=== PATIENT | female | born 1965 | race Caucasian/White ===

== ENCOUNTER 2021-02-04 21:46 | Observation (INO) | payer BC ==
[2021-02-04] MEDS ORDERED: SODIUM CHLORIDE 0.9% 500 ML 500 ML IV STA (23:07)
--- NOTE | 2021-02-04 23:12 | ED ---
Dizziness HPI - General Chief Complaint: Dizziness Stated Complaint: Light headed Time Seen by Provider: 02/04/21 22:09 Source: patient Mode of arrival: ambulatory Limitations: no limitations - History of Present Illness Initial Comments: This patient is a 55-year-old woman who presents to be evaluated for lightheadedness and vertigo that had come on earlier tonight. Patient states she had been driving when she felt lightheaded, so she pulled her vehicle to the side of the road. She then experienced some vertigo a spinning sensation. She states she had 2 previous episodes of this over the past week. She did not have any other associated symptoms. Following the episode she went to an urgent care where she had a 12-lead ECG performed, she had an Accu-Chek which showed a blood sugar approximately 100, and she had reportedly a urine screen performed. Patient then requested to be transferred here. MD Complaint: dizziness, lightheadedness -: hour(s) Timing: sudden onset Description: "room spinning", lightheadedness History of Same: Yes Severity: moderate Improves With: nothing Worsens With: nothing - Related Data Home Medications Medication Instructions Recorded Confirmed Levothyroxine Sodium [Synthroid] 150 mcg PO DAILY 02/04/21 02/04/21 Previous Rx's Medication Instructions Recorded Meclizine [Antivert] 12.5 mg PO TID PRN #10 tab 02/07/21 Ondansetron HCl [Zofran] 4 mg PO Q8H PRN #6 tab 02/07/21 Allergies Allergy/AdvReac Type Severity Reaction Status Date / Time Penicillins Allergy Anaphylaxis Verified 02/04/21 22:56 Review of Systems ROS Statement: Those systems with pertinent positive or pertinent negative responses have been documented in the HPI. ROS Other: All systems not noted in ROS Statement are negative. Constitutional: Denies: fever, chills Respiratory: Denies: cough, dyspnea Cardiovascular: Reports: syncope (Near syncope). Denies: chest pain, palpitations, edema Gastrointestinal: Denies: abdominal pain, nausea, vomiting, diarrhea, melena, hematochezia Genitourinary: Denies: dysuria, hematuria Musculoskeletal: Denies: back pain Skin: Denies: rash Neurological: Denies: headache, weakness, numbness Past Medical History History of Any Multi-Drug Resistant Organisms: None Reported Past Surgical History: Orthopedic Surgery, Tubal Ligation Additional Past Surgical History / Comment(s): septum surgery 2016, partial thyroidectomy Past Psychological History: No Psychological Hx Reported Smoking Status: Former smoker Past Alcohol Use History: Occasional Past Drug Use History: None Reported - Past Family History Father Family Medical History: Cancer Additional Family Medical History / Comment(s): Father of lung cancer. He was a smoker. Mother Family Medical History: Dementia Additional Family Medical History / Comment(s): Mother is . General Exam Limitations: no limitations General appearance: alert, in no apparent distress Head exam: Present: atraumatic, normocephalic Eye exam: Present: normal appearance, PERRL, EOMI. Absent: scleral icterus, conjunctival injection, nystagmus ENT exam: Present: mucous membranes dry Neck exam: Present: normal inspection Respiratory exam: Present: normal lung sounds bilaterally. Absent: respiratory distress, wheezes, rales, rhonchi, stridor Cardiovascular Exam: Present: regular rate, normal rhythm, normal heart sounds. Absent: systolic murmur, diastolic murmur, rubs, gallop GI/Abdominal exam: Present: soft. Absent: distended, tenderness, guarding, rebound, rigid, mass Extremities exam: Present: normal inspection, normal capillary refill. Absent: pedal edema, calf tenderness Back exam: Present: normal inspection. Absent: CVA tenderness (R), CVA tenderness (L) Neurological exam: Present: alert Skin exam: Present: warm, dry, intact, normal color. Absent: rash Course Vital Signs 02/04/21 02/05/21 02/05/21 21:49 00:07 01:25 Temperature 97.9 F Pulse Rate 74 55 L 74 Respiratory 18 16 18 Rate Blood Pressure 147/86 104/59 102/56 O2 Sat by Pulse 99 97 96 Oximetry 02/05/21 02/05/21 02/05/21 04:00 06:50 08:00 Temperature 98.2 F 98.0 F Pulse Rate 64 82 70 Respiratory 16 16 18 Rate Blood Pressure 111/72 100/78 129/79 O2 Sat by Pulse 96 97 100 Oximetry Medical Decision Making - Lab Data Result diagrams: 02/06/21 06:11 02/07/21 10:02 Lab Results 02/04/21 02/04/21 02/04/21 Range/Units 23:14 23:14 23:14 WBC 7.1 (3.8-10.6) k/uL RBC 4.47 (3.80-5.40) m/uL Hgb 13.6 (11.4-16.0) gm/dL Hct 39.4 (34.0-46.0) % MCV 88.2 (80.0-100.0) fL MCH 30.4 (25.0-35.0) pg MCHC 34.5 (31.0-37.0) g/dL RDW 12.6 (11.5-15.5) % Plt Count 232 (150-450) k/uL MPV 7.3 Neutrophils % 65 % Lymphocytes % 25 % Monocytes % 5 % Eosinophils % 3 % Basophils % 1 % Neutrophils # 4.6 (1.3-7.7) k/uL Lymphocytes # 1.8 (1.0-4.8) k/uL Monocytes # 0.3 (0-1.0) k/uL Eosinophils # 0.2 (0-0.7) k/uL Basophils # 0.1 (0-0.2) k/uL Sodium 140 (137-145) mmol/L Potassium 3.9 (3.5-5.1) mmol/L Chloride 107 (98-107) mmol/L Carbon Dioxide 24 (22-30) mmol/L Anion Gap 9 mmol/L BUN 11 (7-17) mg/dL Creatinine 0.70 (0.52-1.04) mg/dL Est GFR (CKD-EPI)AfAm >90 (>60 ml/min/1.73 sqM) Est GFR (CKD-EPI)NonAf >90 (>60 ml/min/1.73 sqM) Glucose 131 H (74-99) mg/dL Plasma Lactic Acid [place] (0.7-2.0) mmol/L Calcium 8.9 (8.4-10.2) mg/dL Total Bilirubin 0.5 (0.2-1.3) mg/dL AST 36 (14-36) U/L ALT 34 (4-34) U/L Alkaline Phosphatase 46 (38-126) U/L Troponin I (0.000-0.034) ng/mL Total Protein 6.9 (6.3-8.2) g/dL Albumin 4.3 (3.5-5.0) g/dL Urine Color Light Yellow Urine Appearance Clear (Clear) Urine pH 5.5 (5.0-8.0) Ur Specific [place] 1.011 (1.001-1.035) Urine Protein Negative (Negative) Urine Glucose (UA) Negative (Negative) Urine Ketones Negative (Negative) Urine Blood Negative (Negative) Urine Nitrite Negative (Negative) Urine Bilirubin Negative (Negative) Urine Urobilinogen <2.0 (<2.0) mg/dL Ur Leukocyte Esterase Small H (Negative) Urine RBC <1 (0-5) /hpf Urine WBC 9 H (0-5) /hpf Urine WBC Clumps Rare H (None) /hpf Ur Squamous Epith Cells 2 (0-4) /hpf Urine Bacteria Rare H (None) /hpf Hyaline Casts 1 (0-2) /lpf Urine Mucus Rare H (None) /hpf 02/04/21 02/04/21 Range/Units 23:14 23:14 WBC (3.8-10.6) k/uL RBC (3.80-5.40) m/uL Hgb (11.4-16.0) gm/dL Hct (34.0-46.0) % MCV (80.0-100.0) fL MCH (25.0-35.0) pg MCHC (31.0-37.0) g/dL RDW (11.5-15.5) % Plt Count (150-450) k/uL MPV Neutrophils % % Lymphocytes % % Monocytes % % Eosinophils % % Basophils % % Neutrophils # (1.3-7.7) k/uL Lymphocytes # (1.0-4.8) k/uL Monocytes # (0-1.0) k/uL Eosinophils # (0-0.7) k/uL Basophils # (0-0.2) k/uL Sodium (137-145) mmol/L Potassium (3.5-5.1) mmol/L Chloride (98-107) mmol/L Carbon Dioxide (22-30) mmol/L Anion Gap mmol/L BUN (7-17) mg/dL Creatinine (0.52-1.04) mg/dL Est GFR (CKD-EPI)AfAm (>60 ml/min/1.73 sqM) Est GFR (CKD-EPI)NonAf (>60 ml/min/1.73 sqM) Glucose (74-99) mg/dL Plasma Lactic Acid [place] 1.9 (0.7-2.0) mmol/L Calcium (8.4-10.2) mg/dL Total Bilirubin (0.2-1.3) mg/dL AST (14-36) U/L ALT (4-34) U/L Alkaline Phosphatase (38-126) U/L Troponin I <0.012 (0.000-0.034) ng/mL Total Protein (6.3-8.2) g/dL Albumin (3.5-5.0) g/dL Urine Color Urine Appearance (Clear) Urine pH (5.0-8.0) Ur Specific [place] (1.001-1.035) Urine Protein (Negative) Urine Glucose (UA) (Negative) Urine Ketones (Negative) Urine Blood (Negative) Urine Nitrite (Negative) Urine Bilirubin (Negative) Urine Urobilinogen (<2.0) mg/dL Ur Leukocyte Esterase (Negative) Urine RBC (0-5) /hpf Urine WBC (0-5) /hpf Urine WBC Clumps (None) /hpf Ur Squamous Epith Cells (0-4) /hpf Urine Bacteria (None) /hpf Hyaline Casts (0-2) /lpf Urine Mucus (None) /hpf Disposition Clinical Impression: Near syncope, Vertigo Disposition: ADMITTED IP TO THIS HOSP Condition: Fair
[2021-02-04 23:36] LABS: Basophils # (A) 0.1 k/uL (0-0.2); Basophils % (A) 1 %; Eosinophils # (A) 0.2 k/uL (0-0.7); Eosinophils % (A) 3 %; HCT 39.4 % (34.0-46.0); HGB 13.6 gm/dL (11.4-16.0); Lymphocytes # (A) 1.8 k/uL (1.0-4.8); Lymphocytes % (A) 25 %; MCH 30.4 pg (25.0-35.0); MCHC 34.5 g/dL (31.0-37.0); MCV 88.2 fL (80.0-100.0); Mean Platelet Volume 7.3; Monocytes # (A) 0.3 k/uL (0-1.0); Monocytes % (A) 5 %; Neutrophils # (A) 4.6 k/uL (1.3-7.7); Neutrophils % (A) 65 %; Platelet Count 232 k/uL (150-450); RBC 4.47 m/uL (3.80-5.40); RDW 12.6 % (11.5-15.5); WBC 7.1 k/uL (3.8-10.6)
--- NOTE | 2021-02-04 23:47 | XR ---
EXAMINATION TYPE: XR chest 1V portable DATE OF EXAM: 02/04/2021 COMPARISON: NONE HISTORY: Syncope TECHNIQUE: Single view FINDINGS: There is no heart failure nor confluent pneumonic infiltrate. Costophrenic angles are clear . Exam limited by patient's size. Bony thorax appears intact. IMPRESSION: No active cardiopulmonary disease. Normal heart.
[2021-02-04 23:49] LABS: ALT 34 U/L (4-34); AST 36 U/L (14-36); African American GFR (CKD) >90 (>60 ml/min/1.73 sqM); Albumin 4.3 g/dL (3.5-5.0); Alkaline Phosphatase 46 U/L (38-126); Anion Gap 9 mmol/L; Blood Urea Nitrogen 11 mg/dL (7-17); Calcium 8.9 mg/dL (8.4-10.2); Carbon Dioxide 24 mmol/L (22-30); Chloride 107 mmol/L (98-107); Glucose 131 mg/dL (74-99); Non-African American GFR(CKD) >90 (>60 ml/min/1.73 sqM); Sodium 140 mmol/L (137-145); Total Bilirubin 0.5 mg/dL (0.2-1.3); Total Protein 6.9 g/dL (6.3-8.2)
[2021-02-04 23:50] LABS: Potassium 3.9 mmol/L (3.5-5.1)
[2021-02-05 00:08] LABS: Appearance,Urine Clear (Clear); Bacteria,Urine Rare /hpf; Bilirubin,Urine Negative (Negative); Blood,Urine Negative (Negative); Color,Urine Light Yellow; Glucose,Urine (UA) Negative (Negative); Hyaline Casts,Urine 1 /lpf (0-2); Ketones,Urine Negative (Negative); Leukocyte Esterase,Urine Small (Negative); Mucus,Urine Rare /hpf; Nitrite,Urine Negative (Negative); PH, Urine 5.5 (5.0-8.0); Protein,Urine Negative (Negative); RBC,Urine <1 /hpf (0-5); Specific Gravity,Urine 1.011 (1.001-1.035); Squamous Epithelial Cell,Urine 2 /hpf (0-4); Urobilinogen,Urine <2.0 mg/dL (<2.0); WBC,Urine 9 /hpf (0-5)
[2021-02-05] MEDS ORDERED: NITROGLYCERIN SL TABS 0.4 MG TAB SUBLINGUAL PRN (01:25)
[2021-02-05] MEDS: SODIUM CHLORIDE 0.9% 1,000 ML IV SCH ×3 (01:30→20:06)
[2021-02-05] MEDS: LEVOTHYROXINE 75 MCG TAB PO SCH (06:53)
[2021-02-05] MEDS: FAMOTIDINE 20 MG/2 ML VIAL IV SCH ×2 (08:19→20:06)
[2021-02-05] MEDS: HEPARIN SODIUM,PORCINE/PF 5,000 UNIT/0.5 ML SYRINGE SQ SCH ×2 (08:19→20:06)
--- NOTE | 2021-02-05 08:22 | P.HPIM ---
History of Present Illness This is a pleasant 55 years old female with no significant past medical history. She is on levothyroxine for hypothyroidism. Presents because of recurrent nausea and lightheadedness. patient states that last Thursday she was doing her laundry and she felt lightheadedness which lasted about 4-5 minutes. And last Thursday she was sedated with the forefoot of the instrument 1 also felt lightheadedness and nausea that lasted about 5 minutes; and yesterday she had another episode of lightheadedness and nausea and felt the room was spinning and lasted for about 10 minutes. Today she has only mild headache, no dizziness. No weakness or numbness or blurred vision or slurred speech. she denies chest pain or abdominal pain or dyspnea. No fever. Patient states that recently she had menstrual bleeding for about 2 weeks, she wanted to see a porcelain slusher with ultrasound showed ovarian cyst. No more bleeding per Vagina Vitals are stable, blood pressure is 100/78 This morning. Labs show an unremarkable CBC, BMP, liver enzymes. Troponins 2 are negative with less than 0.012. Urine analysis is not suspicious of infection. Meyers virus not detected. EKG showed normal sinus rhythm at [address]-T changes. QTC is 457. chest x-ray: No acute process per radiologist. In the emergency room patient was given 500 bolus of normal saline and started at 100 mL per hour. Also she was started on aspirin. Review of Systems CONSTITUTIONAL: No fever, no malaise, no fatigue. HEENT: No recent visual problems or hearing problems. Denied any sore throat. CARDIOVASCULAR: No orthopnea, PND, no palpitations, no syncope. PULMONARY: No shortness of breath, no cough, no hemoptysis. GASTROINTESTINAL: No diarrhea, no nausea, no vomiting, no abdominal pain. Normoactive bowel sounds. NEUROLOGICAL: No headaches, no weakness, no numbness. HEMATOLOGICAL: Denies any bleeding or petechiae. GENITOURINARY: Denies any burning micturition, frequency, or urgency. MUSCULOSKELETAL/RHEUMATOLOGICAL: Denies any joint pain, swelling, or any muscle pain. ENDOCRINE: Denies any polyuria or polydipsia. Past Medical History History of Any Multi-Drug Resistant Organisms: None Reported Past Surgical History: Orthopedic Surgery, Tubal Ligation Additional Past Surgical History / Comment(s): septum surgery 2016, partial thyroidectomy Past Psychological History: No Psychological Hx Reported Smoking Status: Former smoker Past Alcohol Use History: Occasional Past Drug Use History: None Reported Medications and Allergies Home Medications Medication Instructions Recorded Confirmed Type Levothyroxine Sodium [Synthroid] 150 mcg PO DAILY 02/04/21 02/04/21 History Allergies Allergy/AdvReac Type Severity Reaction Status Date / Time Penicillins Allergy Anaphylaxis Verified 02/04/21 22:56 Physical Exam Vitals: Vital Signs Temp Pulse Resp BP Pulse Ox 02/05/21 04:00 98.2 F 64 16 111/72 96 02/05/21 01:25 74 18 102/56 96 02/05/21 00:07 55 L 16 104/59 97 02/04/21 21:49 97.9 F 74 18 147/86 99 Intake and Output 02/04/21 02/05/21 02/05/21 22:59 06:59 14:59 Other: Weight 97.976 kg GENERAL: The patient is alert and oriented x3, not in any acute distress. Well developed, well nourished. HEENT: Pupils are round and equally reacting to light. EOMI. No scleral icterus. No conjunctival pallor. Normocephalic, atraumatic. No pharyngeal erythema. No thyromegaly. CARDIOVASCULAR: S1 and S2 present. No murmurs, rubs, or gallops. PULMONARY: Chest is clear to auscultation, no wheezing or crackles. ABDOMEN: Soft, nontender, nondistended, normoactive bowel sounds. No palpable organomegaly. MUSCULOSKELETAL: No joint swelling or deformity. EXTREMITIES: No cyanosis, clubbing, or pedal edema. NEUROLOGICAL: Gross neurological examination did not reveal any focal deficits. SKIN: No rashes. No petechiae Results CBC & Chem 7: 02/04/21 23:14 02/04/21 23:14 Labs: Abnormal Lab Results - Last 24 Hours (Table) 02/04/21 02/04/21 Range/Units 23:14 23:14 Glucose 131 H (74-99) mg/dL Ur Leukocyte Esterase Small H (Negative) Urine WBC 9 H (0-5) /hpf Urine WBC Clumps Rare H (None) /hpf Urine Bacteria Rare H (None) /hpf Urine Mucus Rare H (None) /hpf Assessment and Plan Assessment: Acute episodic dizziness . Associated with possible vertigo and nausea Hypothyroidism Recent history of postmenopausal bleeding Plan: This is a pleasant 55 years old female who presents with dizziness. Continue with aspirin and normal saline. Monitor vitals. Check orthostatic vitals. Follow-up cardiology recommendation. We'll consult neurology service check hemoglobin A1c, TSH and vitamin B12 Follow-up with her porcelain slusher and PCP as an outpatient Labs and medication were reviewed.. Continue same treatment. Continue with symptomatic treatment. Resume home medication. Monitor lytes and vitals. DVT and GI prophylaxis. Further recommendations depends on the clinical course of the patient DVT prophylaxis: Subcutaneous heparin GI Prophylaxis: Pepcid
--- NOTE | 2021-02-05 09:05 | P.CRDCN ---
History of Present Illness History of present illness: HISTORY OF PRESENTING ILLNESS This is a pleasant 55-year-old female past medical history significant for hypothyroidism and vertigo. She does not follow with a paper sorter and counter.. We oquendo ve been asked to see in consultation for lightheadedness and near-syncope. Patient is seen and examined in the emergency Department, no acute distress. She states that on Thursday she started to have "band like" headache. This proceeded to turn into lightheadeness and sensations of the room spinning. This lasts for about 5 minutes. She said since Thursday this has progressively been getting worse and longer episodes. Yesterday she has another episode of lightheadedness, nausea, felt as if the room was spinning for about 10-15 minutes. She states she has had Vertigo before, but this was very different, in terms of the room spinning and lightheadedness. She denies chest pain, palpitations, shortness of breath. Patient denies history of Diabetes, Stroke, HTN, [place], Hyperlipidemia. She denies tobacco use. She occassionally drinks alcohol. Her medications include levothyroxine daily. DIAGNOSTICS EKG reveals sinus rhythm, heart rate 72, T wave inversion in lead V2, no significant ST-T wave abnormalities. No prior EKG Telemetry tracings at bedside, patient appears to be in sinus rhythm HR 70s Chest xray no active cardiopulmonary disease. Heart size appears normal Laboratory reviewed, CBC unremarkable, troponin negative 3, sodium 140, potassium 3.9, serum creatinine 0.70, BUN 11, COVID-19 negative REVIEW OF SYSTEMS At the time of my exam: CONSTITUTIONAL: Denies fever or chills. CARDIOVASCULAR: Denies chest pain, shortness of breath, orthopnea, PND or palpitations. RESPIRATORY: Denies cough. GASTROINTESTINAL: Denies abdominal pain, diarrhea, constipation, nausea or vomiting. MUSCULOSKELETAL: Denies myalgias. NEUROLOGIC: +headache, +lightheadness, +room spinning sensation, Denies weakness. ENDOCRINE: Denies fatigue, weight change, polydipsia or polyurina. GENITOURINARY: Denies burning, hematuria or urgency with micturation. HEMATOLOGIC: Denies history of anemia or bleeding. PHYSICAL EXAMINATION CONSTITUTIONAL: No apparent distress. HEENT: Head is normocephalic. Pupils are equal, round. Sclerae anicteric. Mucous membranes of the mouth are moist. No JVD. No carotid bruit. CHEST EXAMINATION: Lungs are clear to auscultation. No chest wall tenderness is noted on palpation or with deep breathing. HEART EXAMINATION: Regular rate and rhythm. S1, S2 heard. No murmurs, gallops or rub. ABDOMEN: Soft, nontender. Positive bowel sounds. EXTREMITIES: 2+ peripheral pulses, no lower extremity edema and no calf tenderness. SKIN: intact NEUROLOGIC EXAMINATION: Patient is awake, alert and oriented x3. ASSESSMENT Episodes of Dizziness, Lightheadedness, nausea Headache Hypothyroidism. PLAN Obtain 2D echocardiogram and doppler study to assess cardiac structure and f unction. Monitor the patient on telemetry for 24 hours to rule out arrhythmia Continue IV Fluids Recommend Neurology consult Nurse Practitioner note has been reviewed, I agree with a documented findings and plan of care. Patient was seen and examined. Past Medical History History of Any Multi-Drug Resistant Organisms: None Reported Past Surgical History: Orthopedic Surgery, Tubal Ligation Additional Past Surgical History / Comment(s): septum surgery 2016, partial thyroidectomy Past Psychological History: No Psychological Hx Reported Smoking Status: Former smoker Past Alcohol Use History: Occasional Past Drug Use History: None Reported Medications and Allergies Home Medications Medication Instructions Recorded Confirmed Type Levothyroxine Sodium [Synthroid] 150 mcg PO DAILY 02/04/21 02/04/21 History Allergies Allergy/AdvReac Type Severity Reaction Status Date / Time Penicillins Allergy Anaphylaxis Verified 02/04/21 22:56 Physical Exam Vitals: Vital Signs Temp Pulse Resp BP Pulse Ox 02/05/21 06:50 98.0 F 82 16 100/78 97 02/05/21 04:00 98.2 F 64 16 111/72 96 02/05/21 01:25 74 18 102/56 96 02/05/21 00:07 55 L 16 104/59 97 02/04/21 21:49 97.9 F 74 18 147/86 99 Intake and Output 02/04/21 02/05/21 02/05/21 22:59 06:59 14:59 Other: Weight 97.976 kg Results 02/04/21 23:14 02/04/21 23:14 Cardiac Enzymes 02/04/21 02/04/21 02/05/21 Range/Units 23:14 23:14 02:51 AST 36 (14-36) U/L Troponin I <0.012 <0.012 (0.000-0.034) ng/mL 02/05/21 Range/Units 06:37 AST (14-36) U/L Troponin I <0.012 (0.000-0.034) ng/mL CBC 02/04/21 Range/Units 23:14 WBC 7.1 (3.8-10.6) k/uL RBC 4.47 (3.80-5.40) m/uL Hgb 13.6 (11.4-16.0) gm/dL Hct 39.4 (34.0-46.0) % Plt Count 232 (150-450) k/uL Comprehensive Metabolic Panel 02/04/21 Range/Units 23:14 Sodium 140 (137-145) mmol/L Potassium 3.9 (3.5-5.1) mmol/L Chloride 107 (98-107) mmol/L Carbon Dioxide 24 (22-30) mmol/L BUN 11 (7-17) mg/dL Creatinine 0.70 (0.52-1.04) mg/dL Glucose 131 H (74-99) mg/dL Calcium 8.9 (8.4-10.2) mg/dL AST 36 (14-36) U/L ALT 34 (4-34) U/L Alkaline Phosphatase 46 (38-126) U/L Total Protein 6.9 (6.3-8.2) g/dL Albumin 4.3 (3.5-5.0) g/dL Current Medications Generic Name Dose Route Start Last Admin Trade Name Freq PRN Reason Stop Dose Admin Famotidine 20 mg 02/05/21 09:00 Famotidine 20 Mg/2 Ml Vial IV Q12HR ALEJANDRO Heparin Sodium (Porcine) 5,000 unit 02/05/21 09:00 Heparin Sodium,Porcine/Pf 5,000 Unit/0.5 Ml Syringe SQ Q12HR ALEJANDRO Sodium Chloride 1,000 mls @ 100 mls/hr 02/05/21 01:30 02/05/21 01:30 Saline 0.9% IV 100 mls/hr .Q10H ALEJANDRO Administration Levothyroxine Sodium 150 mcg 02/05/21 06:30 02/05/21 06:53 Levothyroxine 75 Mcg Tab PO 150 mcg DAILY@0630 ALEJANDRO Administration Nitroglycerin 0.4 mg 02/05/21 01:25 Nitroglycerin Sl Tabs 0.4 Mg Tab SUBLINGUAL Q5M PRN Chest Pain Intake and Output 02/04/21 02/05/21 02/05/21 22:59 06:59 14:59 Other: Weight 97.976 kg 02/04/21 23:14 02/04/21 23:14
[2021-02-05 10:31] LABS: T4, Free (Free Thyroxine) 1.86 ng/dL (0.78-2.19)
--- NOTE | 2021-02-05 11:55 | ECHOF ---
Referral Reason:lightheadedness, LV function MEASUREMENTS -------- HEIGHT: 167.6 cm WEIGHT: 98.0 kg BP: RVIDd: 3.0 cm (< 3.3) IVSd: 1.1 cm (0.6 - 1.1) LVIDd: 4.4 cm (3.9 - 5.3) LVPWd: 1.1 cm (0.6 - 1.1) IVSs: 1.7 cm LVIDs: 2.5 cm LVPWs: 1.6 cm LAESV Index (A-L): 23.84 ml/m Ao Diam: 2.8 cm (2.0 - 3.7) AV Cusp: 1.9 cm (1.5 - 2.6) LA Diam: 3.1 cm (2.7 - 3.8) MV EXCURSION: 11.453 mm (> 18.000) MV EF SLOPE: 98 mm/s (70 - 150) EPSS: 0.7 cm MV E Jairo: 0.94 m/s MV DecT: 187 ms MV A Jairo: 0.89 m/s MV E/A Ratio: 1.06 RAP: 5.00 mmHg RVSP: 10.93 mmHg FINDINGS -------- This was a technically good study. The left ventricular size is normal. Left ventricular wall thickness is normal. Overall left vent ricular systolic function is normal with, an EF between 55 - 60 %. The diastolic filling pattern is normal for the age of the patient {E/E'}. The right ventricle is normal in size. The left atrial size is normal. Normal LA size by volume 22+/-6 ml/m2. The right atrial size is normal. The aortic valve is trileaflet and appears structurally normal. The mitral valve is normal. There is trace mitral regurgitation. The tricuspid valve appears structurally normal. Trace tricuspid regurgitation present. Right av tricular systolic pressure is normal at < 35 mmHg. There is no pulmonic regurgitation present. The aortic root size is normal. IVC Not well visulized. There is no pericardial effusion. CONCLUSIONS -------- 1. The left ventricular size is normal. 2. Left ventricular wall thickness is normal. 3. Overall left ventricular systolic function is normal with, an EF between 55 - 60 %. 4. The diastolic filling pattern is normal for the age of the patient {E/E'} 5. There is trace mitral regurgitation. 6. Trace tricuspid regurgitation present. 7. There is no pericardial effusion. BRAN MIXER: Evi Velasco RDCS
[2021-02-05 17:10] LABS: Hemoglobin A1C 5.4 % (4.0-6.0)
[2021-02-06] MEDS: LEVOTHYROXINE 75 MCG TAB PO SCH (05:48)
[2021-02-06] MEDS: SODIUM CHLORIDE 0.9% 1,000 ML IV SCH ×2 (07:50→18:47)
[2021-02-06] MEDS: FAMOTIDINE 20 MG/2 ML VIAL IV SCH ×2 (07:50→19:47)
[2021-02-06] MEDS: HEPARIN SODIUM,PORCINE/PF 5,000 UNIT/0.5 ML SYRINGE SQ SCH ×2 (07:50→19:47)
--- NOTE | 2021-02-06 08:13 | P.CNNES ---
History of Present Illness Consult date: 02/05/21 Requesting physician: Henry E Sheet Reason for Consult: Dizziness and possible vertigo History of Present Illness: Patient is a 55-year-old female came to the hospital yesterday at 9:46 PM for evaluation of lightheadedness and vertigo. Patient has recurrent episodes of vertigo. Her most recent symptoms started on 01/26/2021 when she has returned back home from work, was loading clothes in the washing machine when she developed sudden onset of lightheadedness with vertigo and everything was spinning with nausea. It lasted for about 2-3 minutes. She resume that the vertigo occurred because she has not eaten for dinner. She got something to drink sat down and relax and the symptoms went away. She had another episode on 01/30/2021 when she has gone to a restaurant, ordered food and was just sitting, remembered that she has picked up the fork from the table when she developed lightheaded and nausea lasting for 2-3 minutes. 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 She couldn't focus. [place] nauseous and felt jittery inside. After this episode which lasted for 5-6 minutes, she felt very drained. He therefore decided to come to the ER. Vital signs on arrival blood pressure 147/86 pulse rate 74 temperature 97.9. 2- D echo showed normal left-ventricular size. Normal left-ventricular wall thickness. EF is 55-60%. Diastolic filling pressure is normal. EKG shows normal sinus rhythm, cannot rule out anterior infarct, age undetermined. Chest x-ray showed no active cardiopulmonary disease, normal heart. Her CBC, CMP is normal. UA is negative. Meyers virus PCR negative. Patient's B12 is 507, TSH is low <0.015, free T4 is normal 1.86. Hemoglobin A1c 5.4. At present patient feels fine. Patient states that the first episode ever happened was in October 2007. At that time she would have vertical flipping with the vertigo and would occur 4-5 times a week, lasting between 20 minutes to an hour. She had testing done, workup and nothing was found. These episodes occurred very frequently from October to June 2008, and then went away. She was fine until summer when she developed horizontal vertigo. She was at a local pharmacy [facility] fitting of vitamins when she developed this vertigo. She had her son, over and took her to home. The episode lasted for an hour. Denies any loss of vision, double vision. Patient does have hearing loss, and tinnitus in the right ear. No pain in the ear or pressure feeling. Patient states that she has seen an ENT specialist in 2012 but was for thyroid issues and TENS. At that time she was not complaining of any ear issues or vertigo. She has never seen ENT for vertigo. Patient denies tobacco. She smoked 1 pack per day for 10 years, quit 28 years ago. Drinks alcohol occasionally. Denies any hypertension or diabetes. Review of Systems Patient has tinnitus and hearing loss right ear. Patient states she has history of concussion in 2017. All other review of systems are completely reviewed and unremarkable except as mentioned in HPI. Past Medical History Past Medical History: GERD/Reflux, Hearing Disorder / Deafness, Osteoarthritis (OA), Pneumonia, Thyroid Disorder Additional Past Medical History / Comment(s): Hypothyroid (partial thyroidectomy d/t nodules), R ear tinnitis/[place], constipation, 2020 cologuard negative, UTI, arthritis in bilateral hands. History of Any Multi-Drug Resistant Organisms: None Reported Past Surgical History: Breast Surgery, Orthopedic Surgery, Tubal Ligation Additional Past Surgical History / Comment(s): Bilateral carpal tunnel releases, nasal/septum surgery, partial thyroidectomy, L breast benign lumpectomy. Past Anesthesia/Blood Transfusion Reactions: Motion Sickness Smoking Status: Former smoker - Past Family History Father Family Medical History: Cancer Additional Family Medical History / Comment(s): Father of lung cancer. He was a smoker. Mother Family Medical History: Dementia Additional Family Medical History / Comment(s): Mother is . Medications and Allergies Home Medications Medication Instructions Recorded Confirmed Type Levothyroxine Sodium [Synthroid] 150 mcg PO DAILY 02/04/21 02/04/21 History Allergies Allergy/AdvReac Type Severity Reaction Status Date / Time Penicillins Allergy Anaphylaxis Verified 02/04/21 22:56 Physical Examination - Vital Signs Vital Signs: Vital Signs Temp Pulse Resp BP Pulse Ox 02/05/21 08:00 70 18 129/79 100 02/05/21 06:50 98.0 F 82 16 100/78 97 02/05/21 04:00 98.2 F 64 16 111/72 96 02/05/21 01:25 74 18 102/56 96 02/05/21 00:07 55 L 16 104/59 97 02/04/21 21:49 97.9 F 74 18 147/86 99 Intake and Output 02/04/21 02/05/21 02/05/21 22:59 06:59 14:59 Other: Weight 97.976 kg 97.976 kg Patient is a middle aged female, very pleasant, in no acute distress. Patient is alert awake oriented to time place and person. Speech and language functions are normal. Attention, concentration and fund of knowledge is adequate. On cranial examination, pupils are equal, round and reacting to light, visual pillai are full on confrontation, with no neglect on double simultaneous stimulation, extraocular muscles are intact with no nystagmus. Face is symmetric, tongue protrudes to the midline. Palatal elevation and sensation normal, hearing is slightly decreased on the right, and shoulder shrug normal, facial sensation normal. Shoulder shrug normal. On muscle strength testing, there is no pronator drift and the strength is normal in arms and legs distally and proximally. Deep tendon reflexes are symmetric 1+ in the arms and legs. Sensory to touch is equal with no neglect. Cerebellar function showed no ataxia for [id number] testing. No dysdiadochokinesia. Tone and bulk of muscles normal. No ataxia for [id number] testing. Gait normal. On general examination, there is no carotid bruit or murmur, S1-S2 audible. Abdomen is soft nontender. Chest is clear. Peripheral pulses are present. No edema. Results - Laboratory Findings CBC and BMP: 02/04/21 23:14 02/04/21 23:14 Abnormal Lab Findings: Abnormal Labs 02/04/21 02/04/21 02/05/21 23:14 23:14 06:37 Glucose 131 H TSH <0.015 L Ur Leukocyte Esterase Small H Urine WBC 9 H Urine WBC Clumps Rare H Urine Bacteria Rare H Urine Mucus Rare H Assessment and Plan Assessment: * Recurrent episodes of vertigo lasting for 2-3 minutes. The vertigo does not occur on changing head or body position, occur spontaneously. Patient does have chronic right tinnitus and mild hearing loss on the right side. Rule out Mnire's disease. Rule out acoustic neuroma/schwannoma. * Hyperthyroidism, likely iatrogenic, needs adjustment of thyroid hormone. Would defer to IM. Plan: * Patient states that she never had MRI of the brain performed in the past. We will check MRI of the internal auditory canal with and without contrast to rule out schwannoma. If negative, I would recommend patient follow up with ENT specialist as an outpatient to rule out Mnire's disease. * Treatment of hyperthyroidism as per IM. * B12 is normal 507. Hemoglobin A1c 5.4.
[2021-02-06] MEDS ORDERED: ASPIRIN 325 MG TAB PO SCH (09:00)
[2021-02-06 09:57] LABS: Basophils # (A) 0.05 X 10*3/uL (0.00-0.10); Basophils % (A) 0.9 %; Eosinophils # (A) 0.19 X 10*3/uL (0.04-0.35); Eosinophils % (A) 3.3 %; HCT 39.6 % (37.2-46.3); HGB 12.7 g/dL (12.0-15.0); Lymphocytes % (A) 29.6 %; MCH 29.3 pg (27.0-32.0); MCHC 32.1 g/dL (32.0-37.0); MCV 91.2 fL (80.0-97.0); Mean Platelet Volume 10.1 fL (9.5-12.2); Monocytes # (A) 0.49 X 10*3/uL (0.20-1.00); Monocytes % (A) 8.5 %; Neutrophils % (A) 57.4 %; Platelet Count 227 X 10*3/uL (140-440); RBC 4.34 X 10*6/uL (4.10-5.20); RDW 12.5 % (11.5-14.5); WBC 5.75 X 10*3/uL (4.50-10.00)
[2021-02-06 10:34] LABS: African American GFR (CKD) 72.9 (60.0-200.0); Anion Gap 7.8 mmol/L (4.00-12.00); Calcium 8.5 mg/dL (8.7-10.3); Carbon Dioxide 26.2 mmol/L (21.6-31.8); Chol/HDL Ratio 4.89; LDL Cholesterol,Calculated 97.4 mg/dL (0.0-131.0); Non-African American GFR(CKD) 62.9 (60.0-200.0); Potassium 4.3 mmol/L (3.5-5.5); VLDL Calculation 38.6 mg/dL (5.00-40.00)
--- NOTE | 2021-02-06 14:49 | P.PN ---
Subjective HISTORY OF PRESENTING ILLNESS This is a pleasant 55-year-old female past medical history significant for hypothyroidism and vertigo. She does not follow with a end polisher.. We have been asked to see in consultation for lightheadedness and near-syncope. Patient is seen and examined in the emergency Department, no acute distress. She states that on Thursday she started to have "band like" headache. This proceeded to turn into lightheadeness and sensations of the room spinning. This lasts for about 5 minutes. She said since Thursday this has progressively been getting worse and longer episodes. Yesterday she has another episode of lightheadedness, nausea, felt as if the room was spinning for about 10-15 minutes. She states she has had Vertigo before, but this was very different, in terms of the room spinning and lightheadedness. She denies chest pain, palpitations, shortness of breath. Patient denies history of Diabetes, Stroke, HTN, MT, Hyperlipidemia. She denies tobacco use. She occassionally drinks alcohol. Her medications include levothyroxine daily. EKG reveals sinus rhythm, heart rate 72, T wave inversion in lead V2, no significant ST-T wave abnormalities. No prior EKG. Chest xray no active cardiopulmonary disease. Heart size appears normal 02/06/21: Patient seen and examined at bedside, no acute distress. Ambulating in room after a shower and doesn't have any complaints. Did have a couple episodes of lightheadedness/dizziness. Denies chest pain, shortness of breath, palpitations. Blood pressure 106/58, heart rate 65, afebrile, maintaining oxygen saturation is 97% on room air J reviewed data reviewed CBC and BMP are unremarkable. Triglycerides 193, cholesterol 171, LDL 97, HDL 35, TSH was low, free T4 within normal limits Telemetry tracings reviewed patient sinus mechanism heart rate 60 to 80s, no ectopy and no arrhythmia noted. Echocardiogram reviewed EF between 55-60%, trace mitral regurgitation, trace tricuspid regurgitation PHYSICAL EXAMINATION CONSTITUTIONAL: No apparent distress. HEENT: Neck Supple No JVD. No carotid bruit. CHEST EXAMINATION: Lungs are clear to auscultation. HEART EXAMINATION: Regular rate and rhythm. S1, S2 heard. No murmurs, gallops or rub. ABDOMEN: Soft, nontender. Positive bowel sounds. EXTREMITIES: 2+ peripheral pulses, no lower extremity edema and no calf tenderness. NEUROLOGIC EXAMINATION: Patient is awake, alert and oriented x3. ASSESSMENT Episodes of Dizziness, Lightheadedness, nausea - Do not believe patient's symptoms are from cardiac etiology Headache Hypothyroidism. PLAN Echocardiogram and telemetry reviewed with no acute findings. Patient symptoms not indicative of cardiac etiology after workup. From cardiology perspective, no further workup or changes. We will sign off at this time. Please reach out with any further questions or concerns Thank you kindly for this consultation Nurse Practitioner note has been reviewed, I agree with a documented findings and plan of care. Patient was seen and examined. Objective - Vital Signs Vital signs: Vital Signs Temp 98.3 F 02/06/21 07:00 Pulse 65 02/06/21 07:00 Resp 16 02/06/21 07:00 BP 106/58 02/06/21 07:00 Pulse Ox 97 02/06/21 07:00 Intake & Output 02/05/21 02/06/21 02/06/21 18:59 06:59 18:59 Weight 97.976 kg Other: Voiding Method Toilet Toilet Toilet # Voids 3 2 - Labs CBC & Chem 7: 02/06/21 06:11 02/06/21 06:11 Labs: Abnormal Lab Results - Last 24 Hours (Table) 02/06/21 Range/Units 06:11 Calcium 8.5 L (8.7-10.3) mg/dL Triglycerides 193.0 H (0.0-149.0) mg/dL HDL Cholesterol 35.0 L (40.0-60.0) mg/dL
--- NOTE | 2021-02-06 15:05 | MR ---
EXAMINATION TYPE: MR brain and iac wo/w con DATE OF EXAM: 02/06/2021 COMPARISON: None HISTORY: Recurrent vertigo TECHNIQUE: Multiplanar, multisequence images of the brain and brainstem is performed without and with IV contras t, utilizing 9 mL intravenous Gadavist . FINDINGS: Diffusion weighted images demonstrate no evidence of a recent infarct or other diffusion ab normality. There is no extra-axial fluid collection. Scattered white matter hyperintensities are pre sent on inversion recovery T2-weighted sequences, approximately 20-30 lesions, the largest in the rig ht frontal white matter measures 6 to 7 mm on axial image 21, lesions present in the subcortical and periventricular white matter. The ventricular system and cisternal spaces are normal in size and appe arance. The brain volume is age appropriate. At a level just cephalad to the left temporomandibular joint and possibly a communication with the juliette int there is a multiseptated lobular mass which is T2 intense, T1 hypointense with wall enhancement f ollowing contrast administration measuring approximately 11 mm in cephalad to caudal dimension by 18 mm in AP dimension by 11 mm in transverse dimension, there is likely erosion into the anterior aspect of the temporal bone. There is erosion of the middle cranial fossa posterior and inferior margin wit h intimal mass effect on the inferolateral margin of the left temporal lobe. Midline structures demonstrate normal morphology. The craniocervical junction appears within normal limits. The dural venous sinuses appear patent. The visualized sinuses are remarkable for mucoperios teal thickening in the maxillary sinuses, ethmoid air cells and the globes are intact. IMPRESSION: Findings could possibly represent a ganglion cyst with bone erosion in close proximity to the brain as described, possible mass effect. Nonspecific white matter demyelination, consider multi ple sclerosis in the appropriate clinical setting, migraine headaches, hypertension, vasculitis and L yme disease.
--- NOTE | 2021-02-06 20:40 | P.PN ---
Subjective This is a pleasant 55 years old female with no significant past medical history. She is on levothyroxine for hypothyroidism. Presents because of recurrent nausea and lightheadedness. patient states that last Thursday she was doing her laundry and she felt lightheadedness which lasted about 4-5 minutes. And last Thursday she was sedated with the forefoot of the instrument 1 also felt lightheadedness and nausea that lasted about 5 minutes; and yesterday she had another episode of lightheadedness and nausea and felt the room was spinning and lasted for about 10 minutes. Today she has only mild headache, no dizziness. No weakness or numbness or blurred vision or slurred speech. she denies chest pain or abdominal pain or dyspnea. No fever. Patient states that recently she had menstrual bleeding for about 2 weeks, she wanted to see a dip filler with ultrasound showed ovarian cyst. No more bleeding per Vagina Vitals are stable, blood pressure is 100/78 This morning. Labs show an unremarkable CBC, BMP, liver enzymes. Troponins 2 are negative with less than 0.012. Urine analysis is not suspicious of infection. Meyers virus not detected. EKG showed normal sinus rhythm at [address]-T changes. QTC is 457. chest x-ray: No acute process per radiologist. In the emergency room patient was given 500 bolus of normal saline and started at 100 mL per hour. Also she was started on aspirin. 02/06/2021 Patient has no more dizziness, no more nausea vomiting, no other complaint. She's feeling well, no postural symptoms. Echocardiogram showed ejection fraction of 55-60%, cardiology team signed off the case. Labs and vitals are stable with hemoglobin A1c is normal at 5.4%, TSH is normal 1.8 and B12 normal at 507. I discussed the case with neurology service, who recommended MRI of the brain: No infarct, multiseptate lobular mass close to her left temporo-mandibular joint with left temporal bone erosions, differential diagnosis ganglion cyst per radiologist. Patient also complaining of from chronic fullness and drinking and her here, both sides right more than left. We are consulting ENT service Review of Systems CONSTITUTIONAL: No fever, no malaise, no fatigue. HEENT: No recent visual problems or hearing problems. Denied any sore throat. CARDIOVASCULAR: No orthopnea, PND, no palpitations, no syncope. PULMONARY: No shortness of breath, no cough, no hemoptysis. GASTROINTESTINAL: No diarrhea, no nausea, no vomiting, no abdominal pain. Normoactive bowel sounds. NEUROLOGICAL: No headaches, no weakness, no numbness. HEMATOLOGICAL: Denies any bleeding or petechiae. Active Medications Generic Name Dose Route Start Last Admin Trade Name Freq PRN Reason Stop Dose Admin Famotidine 20 mg 02/05/21 09:00 02/06/21 19:47 Famotidine 20 Mg/2 Ml Vial IV 20 mg Q12HR ALEJANDRO Administration Heparin Sodium (Porcine) 5,000 unit 02/05/21 09:00 02/06/21 19:47 Heparin Sodium,Porcine/Pf 5,000 Unit/0.5 Ml Syringe SQ 5,000 unit Q12HR ALEJANDRO Administration Levothyroxine Sodium 150 mcg 02/05/21 06:30 02/06/21 05:48 Levothyroxine 75 Mcg Tab PO 150 mcg DAILY@0630 ALEJANDRO Administration Nitroglycerin 0.4 mg 02/05/21 01:25 Nitroglycerin Sl Tabs 0.4 Mg Tab SUBLINGUAL Q5M PRN Chest Pain Objective - Vital Signs Vital signs: Vital Signs Temp 98.7 F 02/06/21 18:48 Pulse 66 02/06/21 18:48 Resp 20 02/06/21 18:48 BP 112/63 02/06/21 18:48 Pulse Ox 98 02/06/21 18:48 Intake & Output 02/06/21 02/06/21 02/07/21 06:59 18:59 06:59 Intake Total 0 Balance 0 Intake: Intake, IV Titration 0 Amount Sodium Chloride 0.9% 1, 0 000 ml @ 100 mls/hr IV . Q10H [facility] Rx#:[id number] Other: Voiding Method Toilet Toilet # Voids 2 1 - Exam GENERAL: The patient is alert and oriented x3, not in any acute distress. Well developed, well nourished. HEENT: Pupils are round and equally reacting to light. EOMI. No scleral icterus. No conjunctival pallor. Normocephalic, atraumatic. No pharyngeal erythema. No thyromegaly. CARDIOVASCULAR: S1 and S2 present. No murmurs, rubs, or gallops. PULMONARY: Chest is clear to auscultation, no wheezing or crackles. ABDOMEN: Soft, nontender, nondistended, normoactive bowel sounds. No palpable organomegaly. MUSCULOSKELETAL: No joint swelling or deformity. EXTREMITIES: No cyanosis, clubbing, or pedal edema. NEUROLOGICAL: Gross neurological examination did not reveal any focal deficits. SKIN: No rashes. no petechiae. - Labs CBC & Chem 7: 02/06/21 06:11 02/06/21 06:11 Labs: Abnormal Lab Results - Last 24 Hours (Table) 02/06/21 Range/Units 06:11 Calcium 8.5 L (8.7-10.3) mg/dL Triglycerides 193.0 H (0.0-149.0) mg/dL HDL Cholesterol 35.0 L (40.0-60.0) mg/dL Assessment and Plan Assessment: 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 Associated with possible vertigo and nausea . Improved Hypothyroidism Recent history of postmenopausal bleeding Plan: This is a pleasant 55 years old female who presents with dizziness. Continue with aspirin and discontinue normal saline. Neurology service on the case Consult ENT for left TMJ and ear symptoms Follow-up with her dip filler and PCP as an outpatient Labs and medication were reviewed.. Continue same treatment. Continue with symptomatic treatment. Resume home medication. Monitor lytes and vitals. DVT and GI prophylaxis. Further recommendations depends on the clinical course of the patient DVT prophylaxis: Subcutaneous heparin GI Prophylaxis: Pepcid
[2021-02-07] MEDS: LEVOTHYROXINE 75 MCG TAB PO SCH (05:58)
[2021-02-07 07:49] VITALS: BP 135/76; PULSE 74; RESP 18; TEMP 97.5
[2021-02-07] MEDS: HEPARIN SODIUM,PORCINE/PF 5,000 UNIT/0.5 ML SYRINGE SQ SCH (08:17)
[2021-02-07] MEDS: FAMOTIDINE 20 MG/2 ML VIAL IV SCH (08:17)
--- NOTE | 2021-02-07 10:11 | P.PN ---
Subjective Progress Note Date: 02/06/21 Patient is feeling better. Patient had a mild headache, slight lightheadedness but no spinning. Telemetry monitoring showing sinus rhythm in the 50s with PVCs and some PACs. Objective - Vital Signs Vital signs: Vital Signs Temp 98.7 F 02/06/21 18:48 Pulse 66 02/06/21 18:48 Resp 20 02/06/21 18:48 BP 112/63 02/06/21 18:48 Pulse Ox 98 02/06/21 18:48 Intake & Output 02/06/21 02/06/21 02/07/21 06:59 18:59 06:59 Intake Total 0 Balance 0 Intake: Intake, IV Titration 0 Amount Sodium Chloride 0.9% 1, 0 000 ml @ 100 mls/hr IV . Q10H [facility] Rx#:[id number] Other: Voiding Method Toilet Toilet # Voids 2 1 - Exam Patient's mental status, speech and language functions are normal. Cranial nerves are significant for normal pupils, visual pillai and extraocular muscles with no nystagmus. Patient has significant hearing loss, severe on the right, mild on the left for finger rubbing. Face is symmetric and tongue protrudes to the midline. Muscle strength is normal. Reflexes are trace in the upper limbs, 1+ in the lower extremities. Sensations are equal. No ataxia. - Labs CBC & Chem 7: 02/06/21 06:11 02/06/21 06:11 Labs: Abnormal Lab Results - Last 24 Hours (Table) 02/06/21 Range/Units 06:11 Calcium 8.5 L (8.7-10.3) mg/dL Triglycerides 193.0 H (0.0-149.0) mg/dL HDL Cholesterol 35.0 L (40.0-60.0) mg/dL Assessment and Plan Assessment: * Recurrent episodes of vertigo lasting for 2-3 minutes. The vertigo does not occur on changing head or body position, occur spontaneously. Patient does have chronic right tinnitus and significant hearing loss on the right side. Rule out Mnire's disease. Rule out acoustic neuroma/schwannoma. * Hyperthyroidism, likely iatrogenic, needs adjustment of thyroid hormone. Would defer to IM. Plan: * Await MRI of the internal auditory canal with and without contrast to rule out schwannoma. If negative, I would recommend patient follow up with ENT specialist as an outpatient to rule out Mnire's disease. * Treatment of hyperthyroidism as per IM. * B12 is normal 507. Hemoglobin A1c 5.4.
[2021-02-07 10:32] LABS: African American GFR (CKD) >90 (>60 ml/min/1.73 sqM); Blood Urea Nitrogen 14 mg/dL (7-17); Non-African American GFR(CKD) 86 (>60 ml/min/1.73 sqM)
[2021-02-07] MEDS ORDERED: SODIUM CHLORIDE 0.9% 1,000 ML IV SCH (10:45)
--- NOTE | 2021-02-07 12:17 | CT ---
EXAMINATION TYPE: CT soft tissue neck w con DATE OF EXAM: 02/07/2021 COMPARISON: None HISTORY: Left sided neck mass marked by BB. Surgery to that region previously. CT DLP: 649 mGycm CONTRAST: CT scan of the neck is performed with IV Contrast, patient injected with 100 mL of Isovue M300. Contrast enhanced CT of the neck was performed from the skull base through the lung apices. No distinct mass at the site of clinical concern. AIRWAY: The supraglottic, glottic, and subglottic portions of the airway appear patent and free of mass. SALIVARY GLANDS: The submandibular and parotid glands are free of mass or inflammatory process. THYROID GLAND: No nodules or masses seen. LYMPH NODES: No adenopathy seen greater than 1cm. LUNG APICES: No nodule or mass is seen. OTHER: Vascular structures are patent. No significant degenerative change of the cervical spine. N o abscess seen. IMPRESSION: No distinct abnormality appreciated.
[2021-02-07] MEDS ORDERED: MECLIZINE 12.5 MG TAB PO PRN (13:33)
--- NOTE | 2021-02-07 15:36 | P.PN ---
Subjective Progress Note Date: 02/07/21 Patient is feeling better. No further episodes of vertigo. She had slight lightheadedness but no spinning. Objective - Vital Signs Vital signs: Vital Signs Temp 97.5 F L 02/07/21 07:00 Pulse 74 02/07/21 07:00 Resp 18 02/07/21 07:00 BP 135/76 02/07/21 07:00 Pulse Ox 96 02/07/21 07:00 Intake & Output 02/06/21 02/07/21 02/07/21 18:59 06:59 18:59 Intake Total 0 Balance 0 Intake: Intake, IV Titration 0 Amount Sodium Chloride 0.9% 1, 0 000 ml @ 100 mls/hr IV . Q10H [facility] Rx#:[id number] Other: Voiding Method Toilet Toilet # Voids 3 - Exam Patient's mental status, speech and language functions are normal. Cranial nerves are significant for normal pupils, visual pillai and extraocular muscles with no nystagmus. Patient has significant hearing loss, severe on the right, mild on the left for finger rubbing. Face is symmetric and tongue protrudes to the midline. Muscle strength is normal. Reflexes are trace in the upper limbs, 1+ in the lower extremities. Sensations are equal. No ataxia. - Labs CBC & Chem 7: 02/06/21 06:11 02/07/21 10:02 Assessment and Plan Assessment: * Recurrent episodes of vertigo lasting for 2-3 minutes. The vertigo does not occur on changing head or body position, occur spontaneously. Patient does have chronic right tinnitus and significant hearing loss on the right side. Rule out Mnire's disease. No evidence of acoustic neuroma/schwannoma on the MRI. * Hyperthyroidism, likely iatrogenic, needs adjustment of thyroid hormone. Would defer to IM. Plan: * MRI of the brain and IAC with and without contrast for performed. It revealed findings could possibly represent a ganglion cyst with bone erosion in the close proximity to the brain with possible mass effect. It is located just cephalad to the left tempor0-mandibular joint and possibly a communication with the joint. Nonspecific white matter demyelination, consider multiple sclerosis in the appropriate clinical setting, migraine headaches, hypertension, vasculitis and Lyme disease. * Patient also had computed tomography scan of the soft tissue of neck with contrast, which revealed no distinct abnormality appreciated. * Patient has an appointment with Dr. Pierce, ENT specialist as an outpatient on 02/20/2021 to rule out Mnire's disease. * We will check RPR, JUSTICE, Lyme titer. * Treatment of hyperthyroidism as per IM. * B12 is normal 507. Hemoglobin A1c 5.4. * Patient going home today. Addendum 02/10/2021: JUSTICE negative, Lyme and RPR also negative.
[2021-02-07] MEDS ORDERED: FAMOTIDINE 20 MG TAB PO SCH (21:00)
--- NOTE | 2021-02-08 00:11 | P.DS ---
Providers Date of admission: 02/07/21 09:29 Attending physician: Branden Rabago Consults: 02/05/21 01:25 Consult Physician Routine Consulting Provider: Ori Rivera Consult Reason/Comments: near syncope Do you want consulting provider notified?: Yes 02/05/21 08:19 Consult Physician Urgent Consulting Provider: Landon Payne Consult Reason/Comments: dizziness and possible vertigo Do you want consulting provider notified?: Yes 02/06/21 15:55 Consult Physician Urgent Consulting Provider: Alden Ramos Consult Reason/Comments: dizziness, ear symptoms, abnormal MRI Do you want consulting provider notified?: Yes Primary care physician: Physician Nonstaff Hospital Course: Diagnoses: 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 Associated with possible vertigo and nausea . Improved Hypothyroidism Recent history of postmenopausal bleeding Hospital course: This is a pleasant 55 years old female with no significant past medical history. She is on levothyroxine for hypothyroidism. Presents because of recurrent nausea and lightheadedness. patient states that last Thursday she was doing her laundry and she felt lightheadedness which lasted about 4-5 minutes. And last Thursday she was sedated with the forefoot of the instrument 1 also felt lightheadedness and nausea that lasted about 5 minutes; and yesterday she had another episode of lightheadedness and nausea and felt the room was spinning and lasted for about 10 minutes. Also patient complains from chronic fullness and reconciled in the years which are contributing to Mnire disease, however workup was negative by cardiology service who cleared the patient for discharge; while neurologist found no intracranial lesion however her MRI of the brain showed multiseptate lobular mass close to the left temporomandibular joint with left temporal bone erosions and differential diagnosis includes ganglion cyst. Because of this patient was referred to ENT Dr. Pierce as an outpatient and patient agrees Dr. Pierce was contacted by the staff for in-house consult however he wanted the patient to get a CTA of the head which was negative and wanted her to be referred to his office for appointment rather than inpatient stating that he has needed equipments in the office; patient informed and she agrees to see him in the office Patient was cleared for discharge by neurology and cardiology services Problems and management plan were discussed with the patient and he verbalized understanding and acceptance Patient was found stable and can be discharged home however he needs follow-up as an outpatient. Patient was instructed to follow up with PCP Dr. tejada within one week and patient agrees With the appointments made for her with him on 02/20 Also patient agrees with the appointments made for her with ENT Dr. Pierce on 02/20 as well but the morning Another appointment made for Dr. Ramos on 03/05 in case she was reversed appointment Also patient was instructed to follow up with the neurologist Dr. Mclaughlin on DrChance Linares are suggested for her in 2 weeks and she agrees to call and make her on appointments Physical exam Gen: patient is a AAOx3, no distress CVS: S1-S2, RRR, no murmur Lungs: B/L CTA, no wheezing Abdomen: soft, no distention, no tenderness, positive bowel sounds Extremity: no leg edema or induration Time spent more than 35 minutes Patient Condition at Discharge: Fair Plan - Discharge Summary Discharge Rx Participant: No New Discharge Prescriptions: New Ondansetron HCl [Zofran] 4 mg PO Q8H PRN #6 tab PRN Reason: Nausea And Vomiting Meclizine [Antivert] 12.5 mg PO TID PRN #10 tab PRN Reason: Vertigo Continue Levothyroxine Sodium [Synthroid] 150 mcg PO DAILY Discharge Medication List Levothyroxine Sodium [Synthroid] 150 mcg PO DAILY 02/04/21 [History] Meclizine [Antivert] 12.5 mg PO TID PRN #10 tab 02/07/21 [Rx] Ondansetron HCl [Zofran] 4 mg PO Q8H PRN #6 tab 02/07/21 [Rx] Follow up Appointment(s)/Referral(s): Holley Tejada MD [REFERRING] - 02/20/21 1:00 pm Alden Ramos DO [Doctor of Osteopathic Medicine] - 03/05/21 12:45 pm Iván Mclaughlin MD [Medical Doctor] - 2 Weeks (neurologist ) Jalen Pierce MD [STAFF PHYSICIAN] - 02/20/21 10:30 am Dixon Linares DO [STAFF PHYSICIAN] - 2 Weeks (neurologist ) Patient Instructions/Handouts: Vertigo (DC)
== END 2021-02-07 14:23 | disposition home or self-care (01) ==
LOC: EC 21:46 → 6NMEDSUR 02-05 01:25 → INTOOBSV 02-07 09:29 → OBSVTOIN 02-07 09:29 → UNDODISIN 02-07 14:23
PROVIDERS: ADMIT Hospitalist; ATTEND Hospitalist
DX: R42 Dizziness and giddiness (principal); R55 Syncope and collapse; R93.0 Abnormal findings on diagnostic imaging of skull and head, not elsewhere classified; G37.9 Demyelinating disease of central nervous system, unspecified; H93.11 Tinnitus, right ear; H91.91 Unspecified hearing loss, right ear; R51.9 Headache, unspecified; R11.0 Nausea; E89.0 Postprocedural hypothyroidism; N83.209 Unspecified ovarian cyst, unspecified side; N95.0 Postmenopausal bleeding; K21.9 Gastro-esophageal reflux disease without esophagitis; M19.042 Primary osteoarthritis, left hand; M19.041 Primary osteoarthritis, right hand; K59.00 Constipation, unspecified; I49.3 Ventricular premature depolarization; I49.1 Atrial premature depolarization; Z20.822 Contact with and (suspected) exposure to COVID-19; Z79.890 Hormone replacement therapy; Z88.0 Allergy status to penicillin; Z87.891 Personal history of nicotine dependence; Z87.820 Personal history of traumatic brain injury; Z87.01 Personal history of pneumonia (recurrent); Z87.440 Personal history of urinary (tract) infections; Z98.51 Tubal ligation status; Z98.890 Other specified postprocedural states; Z80.1 Family history of malignant neoplasm of trachea, bronchus and lung; Z81.2 Family history of tobacco abuse and dependence; Z82.0 Family history of epilepsy and other diseases of the nervous system
CPT/HCPCS: 96376 ×3; 96361 ×3; 96372 ×3; 93005 ×2; 96360; 96374; 99285 ×2; 36415; 93306; 97165; 84439; 80061; 80053; 80048; 84443; 82607; 82565; 83605; 84520; 84484 ×2; 85025 ×2; 81001; 86618; 86780; 86038; 83036; 87635; 71045; 70491; 70553; G0378 ×3; A9585; Q9967; J1644 ×2

== ENCOUNTER 2021-04-05 09:08 | Day surgery (SDC) | payer BC ==
--- NOTE | 2021-04-05 06:55 | HP ---
HISTORY AND PHYSICAL CHIEF COMPLAINT: Lesion of the nasal tip. HISTORY OF PRESENT ILLNESS: This patient is a 55-year-old female who recently was seen in my office initially for what was thought to be a mass in the left jaw that was extending up towards the patient's left temporal lobe. The patient is currently being evaluated for this by a neurosurgeon and an ENT specialist in [place]. While in the office, the patient stated that she was concerned about a lesion that was located on the tip of her nose, which at times seems to get seemed to get crusty and even bleed. At the time she is seen in the office clinical examination reveals she has approximately a 4 mm fairly well- circumscribed maculopapular lesion located on the tip of the nose. This was suspicious for possible basal cell carcinoma. It was recommended the patient undergo excision of this lesion under anesthesia. ALLERGIES: PENICILLIN. CURRENT MEDICATIONS: Synthroid, methocarbamol, prednisone, topiramate. REVIEW OF SYSTEMS: Positive for metabolic endocrine system for hypothyroidism. Neurological system is positive for migraine headaches. The remainder of the review of systems is essentially unremarkable. PREVIOUS SURGERIES: Includes carpal tunnel surgery, tubal ligation, septoplasty, removal of fibroid mass from the left breast and a mass that was removed from the left side of her face approximately 10 years ago. (She does not know the pathological diagnosis). PHYSICAL EXAMINATION: This patient is a 55-year-old female who was alert, cooperative and well-oriented to time and place. HEENT EXAMINATION: Patient is normocephalic. Tympanic membranes are normal. Middle ear spaces are free of any fluid or infection. Pupils equal, round, react to light and accommodation. Extraocular movements within normal limits. Intranasal examination reveals moderate to severe septal deviation with compensatory hypertrophy of the inferior turbinates. Examination of the nasal skin with attention to the tip reveals patient has approximate 4 mm well-circumscribed maculopapular lesion. Examination of oropharynx, cranial nerves 2-12 and remainder of the head and neck exam is essentially unremarkable. CHEST CARDIOVASCULAR: Both lung pillai are clear to percussion and auscultation. Patient is in regular sinus rhythm S1, S2 are present. No murmurs S3s or S4s. Peripheral pulses are bilaterally symmetrical. ABDOMEN: There is no evidence any masses, megaly or tenderness. The abdomen is soft. SKIN: Unremarkable. MUSCULOSKELETAL, NEUROLOGICAL: Within normal limits. PELVIC AND RECTAL: Pelvic and rectal exam is deferred at this time because the patient has this done on a regular basis at her family physician's office. The remainder of physical exam is essentially unremarkable. IMPRESSION: Lesion of the nasal tip, malignancy? PLAN: The patient is scheduled undergo excision of lesion of the tip of the nose under either IV sedation with MAC and local anesthesia or general anesthesia. Attention RNs in the pre-surgical area: I have not ordered any pre-surgical prophylactic antibiotics for this patient. If the pharmacy department sends any presurgical prophylactic antibiotics to the pre-surgical area for this patient, cancel that order, return the medication to the pharmacy, and make sure that the patient's account is credited appropriately. I have discussed the risks, benefits and alternative therapies for the above-mentioned procedure and for both sedation/analgesia as well as necessary blood product administration, if indicated, as they pertain to this patient. The patient has indicated his or her understanding and acceptance of the risks and procedures discussed. MMCHADWICKL / SARAN: [id number] /
[~2021-04-05 09:08] MED LIST: DEXAMETHASONE SOD PHOSPHATE 4 MG/ML 1 ML VIAL IV ONE; HYDROmorphone 0.5 MG/0.5 ML SYRINGE IVP PRN; LACTATED RINGERS 1,000 ML IV SCH; LIDOCAINE 1% (10MG/ML) FOR IV START INTRADERMA PRN; ONDANSETRON 4 MG/2 ML VIAL IVP ONE; Pre Op ABX Message 1 EACH MISC MISCELLANE ONE; SCOPOLAMINE 1.5MG/72HR PATCH TRANSDERM ONE
[2021-04-05] MEDS ORDERED: LACTATED RINGERS 1,000 ML IV ONE (09:28)
[2021-04-05] MEDS ORDERED: fentaNYL (PF) 50 MCG/ML 2 ML AMP ONE (11:17)
[2021-04-05] MEDS ORDERED: KETAMINE 10 MG/ML 20 ML VIAL ONE (11:17)
[2021-04-05] MEDS ORDERED: MIDAZOLAM 2 MG/2 ML VIAL ONE (11:17)
[2021-04-05] MEDS ORDERED: LIDOCAINE 1% INJ 10MG/ML (20 ML MDV) ONE (11:17)
[2021-04-05] MEDS ORDERED: PROPOFOL 10 MG/ML 20 ML VIAL IV ONE (11:17)
[2021-04-05] MEDS ORDERED: BACITRACIN ZINC 500 UNIT/GM OINT 28.4 GM TUBE TOPICAL ONE (11:52)
[2021-04-05 12:30] VITALS: TEMP 98
[2021-04-05 12:49] VITALS: RESP 18
[2021-04-05] MEDS ORDERED: IBUPROFEN 200 MG TAB PO ONE (13:37)
[2021-04-05 13:52] VITALS: BP 145/81; PULSE 73
--- NOTE | 2021-04-07 18:40 | OP ---
OPERATIVE REPORT DATE OF SURGERY: 04/05/2021 PREOPERATIVE DIAGNOSIS: 4 mm lesion of the nasal tip. POSTOPERATIVE DIAGNOSIS: 4 mm lesion of the nasal tip, final pathology is pending. ANESTHESIA: General anesthesia. OPERATIVE PROCEDURE: Complete excision of a 4 mm lesion of the nasal tip with complex closure. OPERATING SURGEON: Dr. Pierce. COMPLICATIONS: None. ESTIMATED BLOOD LOSS: Less than 5 mL. OPERATIVE PROCEDURE: The patient was placed on the operating table in supine position. After uneventful induction and endotracheal intubation, status satisfactory general anesthesia was obtained. Next the patient's mid face was prepped and draped in usual customary fashion. Next, the lesion which was located noted on dorsum of the nasal tip was identified. Using a Codman marker, a proposed incision was outlined in an elliptical fashion. No local anesthesia was used. Next using a #64 Braxton blade, incision was made, cutting through skin and subcutaneous tissue down to just above the level of the underlying cartilage. The lesion was excised completely and was sent to pathology in formalin for permanent sectioning. Hemostasis was obtained using electrocautery. Next, the wound was closed in a complex fashion using 5-0 rapid absorbing Vicryl to reapproximate underlying subcutaneous tissues and 5-0 rapid absorbing Vicryl to reapproximate the subcutaneous layers. Finally, the skin was approximated with combination of 5-0 rapid absorbing Vicryl in interrupted buried fashion along with several 5-0 chromic sutures in interrupted buried fashion. In addition, this a coating of tissue glue, xeroderma was applied to the incision to complete the closure. At this point, the procedure was terminated. Estimated blood loss was less than 5 mL. There were no intraoperative complications. Patient tolerated the procedure well and was returned to recovery room in satisfactory condition. Final pathology is pending. MMODL / IJN: [id number] /
== END 2021-04-05 14:08 | disposition home or self-care (01) ==
LOC: OR 09:08
PROVIDERS: ATTEND Otolaryngology
DX: L73.9 Follicular disorder, unspecified (principal); L57.8 Other skin changes due to chronic exposure to nonionizing radiation; E03.9 Hypothyroidism, unspecified; G43.909 Migraine, unspecified, not intractable, without status migrainosus; Z98.890 Other specified postprocedural states; Z98.51 Tubal ligation status; Z79.890 Hormone replacement therapy; Z79.52 Long term (current) use of systemic steroids; Z79.899 Other long term (current) drug therapy; Z88.0 Allergy status to penicillin
CPT/HCPCS: 88305; 11440; J2250; J1100; J2405; J2001; J3010; J2704; J1170